=== PATIENT | female | born 1960 | race Caucasian/White ===

== ENCOUNTER 2021-02-17 23:15 | Emergency (ER) | payer OTHER ==
[~2021-02-17] VITALS: Ht 160 cm; Wt 68.0 kg
[~2021-02-17 23:15] MED LIST: CLONAZEPAM 1 MG1 M1 PO; PHENTERMINE HCL30 MG PO; PROZAC 20 MG20 M1 PO; VALTREX; WELLBUTRIN SR150 MG PO; ZOFRAN ODT4 MG PO
[2021-02-18 00:01] LABS: URINE BILIRUBIN NEGATIVE (Negative); URINE BLOOD TRACE (Negative); URINE CLARITY CLEAR; URINE COLOR STRAW; URINE GLUCOSE-RANDOM NEGATIVE (Negative); URINE KETONES NEGATIVE (Negative); URINE LEUKOCYTES-REFLEX NEGATIVE (Negative); URINE NITRITE-REFLEX NEGATIVE (Negative); URINE PROTEIN NEGATIVE (Negative); URINE UROBILINOGEN 0.2 E.U./dl (0.2-1.0)
[2021-02-18 00:08] LABS: CALCIUM 8.7 mg/dL (8.5-10.1); CREATININE 0.9 mg/dL (0.6-1.3); HEMATOCRIT 39.4 % (37.0-47.0); HEMOGLOBIN 13.3 gm/dL (12.0-15.0); MCH 31.4 pg (26.0-34.0); MCHC 33.8 g/dL (28.0-37.0); MCV 92.8 fL (80.0-100.0); MPV 10.7 fl. (7.2-11.1); POTASSIUM 3.7 mmol/L (3.5-5.1); RBC 4.24 mil/uL (4.20-5.00); RDW-CV 12.7 % (10.5-14.5); WBC 9.4 thou/uL (4.0-11.0)
[2021-02-18 00:09] LABS: ALBUMIN 3.5 g/dL (3.4-5.0); TOTAL BILIRUBIN 0.2 mg/dL (<0.1-1.0); TOTAL PROTEIN 6.3 g/dL (6.4-8.2)
[2021-02-18] MEDS ORDERED: MELOXICAM15 MG PO (02:29)
[2021-02-18] MEDS ORDERED: DIAZEPAM 5 MG5 MG PO (02:29)
[2021-02-18 03:12] VITALS: BP 128/67
== END 2021-02-18 03:13 | disposition home or self-care (01) ==
LOC: M.ERS 23:15
PROVIDERS: Personal Emergency Response Attendant
DX: M79.18 Myalgia, other site (principal); M54.5 Low back pain; R10.9 Unspecified abdominal pain; F32.9 Major depressive disorder, single episode, unspecified; F41.9 Anxiety disorder, unspecified; Z90.49 Acquired absence of other specified parts of digestive tract; Z79.899 Other long term (current) drug therapy; Z88.5 Allergy status to narcotic agent

== ENCOUNTER 2021-05-30 16:35 | Emergency (ER) | payer OTHER ==
[~2021-05-30] VITALS: Ht 160 cm; Wt 68.0 kg
[~2021-05-30 16:35] MED LIST changes: +DIAZEPAM 5 MG5 MG PO; +MELOXICAM15 MG PO
[2021-05-30 18:00] VITALS: BP 135/96
== END 2021-05-30 18:00 | disposition home or self-care (01) ==
LOC: M.ERS 16:35
DX: S20.211A Contusion of right front wall of thorax, initial encounter (principal); F32.9 Major depressive disorder, single episode, unspecified; F41.9 Anxiety disorder, unspecified; Z90.49 Acquired absence of other specified parts of digestive tract; Z85.841 Personal history of malignant neoplasm of brain; Z79.899 Other long term (current) drug therapy; W01.0XXA Fall on same level from slipping, tripping and stumbling without subsequent striking against object, initial encounter; Z88.5 Allergy status to narcotic agent; Y93.89 Activity, other specified; Y92.89 Other specified places as the place of occurrence of the external cause; Y99.8 Other external cause status